=== PATIENT | female | born 1995 | race Two or more races ===

== ENCOUNTER 2021-08-01 12:01 | Outpatient (CLI) | payer OTHER ==
[2021-08-02 03:27] LABS: SARS-CoV-2 PCR by NAA Not Detected (NotDetected)
== END 2021-08-01 12:02 | disposition home or self-care (01) ==
LOC: CSHLAB 12:01
PROVIDERS: ATTEND Obstetrics & Gynecology
DX: Z20.822 Contact with and (suspected) exposure to COVID-19 (principal)
CPT/HCPCS: U0003; U0005

== ENCOUNTER 2021-08-02 15:54 | Inpatient (IN) | payer OTHER ==
[2021-08-02] MEDS: Lactated Ringer's 1,000 ML IV SCH ×2 (16:52→20:07)
[2021-08-02 16:59] VITALS: BMI 41.5
[2021-08-02] MEDS ORDERED: NS w/ Oxytocin 30 units 500 ML IV SCH ×2 (17:15)
[2021-08-02] MEDS ORDERED: Acetaminophen 500 MG TAB PO PRN (17:15)
[2021-08-02] MEDS ORDERED: Ibuprofen 800 MG TAB PO PRN (17:15)
[2021-08-02] MEDS ORDERED: HYDROcodone/Acetaminophen 5/325 mg Tablet PO PRN (17:15)
[2021-08-02] MEDS ORDERED: Promethazine HCl 25 MG/ML VIAL IM PRN ×2 (17:15→20:10)
[2021-08-02] MEDS ORDERED: Ondansetron PF 4 MG/2 ML Vial IVP PRN ×2 (17:15→20:10)
[2021-08-02] MEDS ORDERED: Carboprost 250 MCG/ML AMP IM PRN (17:15)
[2021-08-02] MEDS ORDERED: Diphenoxylate HCl/Atropine Tablet PO PRN ×2 (17:15)
[2021-08-02] MEDS ORDERED: Butorphanol Tartrate 1 MG/ML VIAL SLOW IVP PRN (17:15)
[2021-08-02] MEDS ORDERED: Docusate 100 MG CAP PO PRN (17:15)
[2021-08-02] MEDS ORDERED: Lidocaine 1% (PF) 30 ML VIAL SC PRN (17:15)
[2021-08-02] MEDS ORDERED: Misoprostol 200 MCG TAB PR PRN (17:15)
[2021-08-02] MEDS ORDERED: Zolpidem Tartrate 5 MG TAB PO PRN (17:15)
[2021-08-02] MEDS ORDERED: hydrALAZINE 20 MG/ML VIAL SLOW IVP PRN (17:15)
[2021-08-02 17:43] LABS: Hemoglobin 11.4 g/dL (12.0-15.5); Mean Corpuscular Hemoglobin 26.1 pg (27.0-33.0); Mean Corpuscular Volume 81.7 fl (81.6-98.3); Mean Platelet Volume 10.7 fl (7.4-10.4); Platelet Count 283 10x3/uL (150-450); RBC Distribution Width 14.6 % (11.5-14.5); Red Blood Cell (RBC) Count 4.36 10x6/uL (3.90-5.03); White Blood Cell (WBC) Count 12.2 10x3/uL (3.5-10.5)
[2021-08-02 18:13] LABS: Hep B Surf Ag Non-Reactive S/CO (NonReactive)
[2021-08-02 18:18] LABS: HBSAg Index 0.15 S/CO (0-0.99)
[2021-08-02 18:48] LABS: Syphilis Antibody Nonreactive (Nonreactive); Syphilis Antibody Index 0.05 S/CO (<1.00 Non-Reactive)
[2021-08-02] MEDS ORDERED: Fentanyl 2 mcg/Bup 0.1% Cadd 100 ML ONE (19:28)
[2021-08-02] MEDS ORDERED: Naloxone HCl 0.4 mg/ml Vial IVP PRN ×2 (20:10)
[2021-08-02] MEDS ORDERED: Acetaminophen 325 MG TAB PO PRN (20:10)
[2021-08-02] MEDS ORDERED: diphenhydrAMINE 50 MG/ML VIAL IVP PRN (20:10)
[2021-08-02] MEDS ORDERED: ePHEDrine Sulfate 50 MG/10 ML VIAL SLOW IVP PRN (20:10)
[2021-08-02] MEDS ORDERED: Lactated Ringer's 500 ML IV PRN (20:10)
[2021-08-02] MEDS ORDERED: Hydrocerin (Eucerin) Cream 120 gm Jar TOP PRN (20:10)
[2021-08-02] MEDS ORDERED: Fentanyl 2 mcg/Bupivacaine 0.1% Cassette 100 ML EPIDURAL SCH (20:15)
[2021-08-02] MEDS ORDERED: Communication Order-Pharmacy FS SCH (20:15)
[2021-08-03] MEDS ORDERED: Misoprostol 200 MCG TAB VAG PRN (01:33)
[2021-08-03] MEDS ORDERED: Varicella virus, LIVE 0.5 ML VIAL SC ONE (01:33)
[2021-08-03] MEDS ORDERED: Boostrix 0.5 ML (Tdap) VIAL IM ONE (01:33)
[2021-08-03] MEDS ORDERED: Preparation H Ointment 28 GM TUBE PR PRN (01:33)
[2021-08-03] MEDS ORDERED: Ondansetron PF 4 MG/2 ML Vial IVP PRN (01:33)
[2021-08-03] MEDS ORDERED: Measles/Mumps/Rubella 10 MCG/0.5 ML VIAL SC ONE (01:33)
[2021-08-03] MEDS ORDERED: Lanolin Ointment 7 GM TUBE TOP PRN (01:33)
[2021-08-03] MEDS ORDERED: Milk Of Magnesia 30 ML UDCUP PO PRN (01:33)
[2021-08-03] MEDS ORDERED: diphenhydrAMINE 25 MG CAP PO PRN (01:33)
[2021-08-03] MEDS ORDERED: Bisacodyl 10 MG SUPP PR PRN (01:33)
[2021-08-03] MEDS ORDERED: HYDROcodone/Acetaminophen 5/325 mg Tablet PO PRN (01:33)
[2021-08-03] MEDS ORDERED: Promethazine HCl 25 MG/ML VIAL IM PRN (01:33)
[2021-08-03] MEDS ORDERED: Benzocaine-Menthol 82.5 ML CAN TOP PRN (01:33)
[2021-08-03] MEDS ORDERED: Zolpidem Tartrate 5 MG TAB PO PRN (01:33)
[2021-08-03] MEDS ORDERED: hydrALAZINE 20 MG/ML VIAL SLOW IVP PRN (01:33)
[2021-08-03] MEDS ORDERED: NS w/ Oxytocin 30 units 500 ML IV SCH (01:33)
[2021-08-03] MEDS: Ibuprofen 800 MG TAB PO SCH ×4 (02:38→21:31)
[2021-08-03 04:57] LABS: Hemoglobin 10.2 g/dL (12.0-15.5); Mean Corpuscular HGB CONC 33.3 g/dL (32.0-36.0); Mean Corpuscular Hemoglobin 26.7 pg (27.0-33.0); Mean Corpuscular Volume 80.1 fl (81.6-98.3); Mean Platelet Volume 10.7 fl (7.4-10.4); Platelet Count 244 10x3/uL (150-450); RBC Distribution Width 14.8 % (11.5-14.5); Red Blood Cell (RBC) Count 3.82 10x6/uL (3.90-5.03); White Blood Cell (WBC) Count 13.4 10x3/uL (3.5-10.5)
[2021-08-03] MEDS: Ferrous Sulfate 325 MG TAB PO SCH ×2 (07:18→15:01)
[2021-08-03] MEDS: Docusate 100 MG CAP PO SCH ×2 (08:30→20:04)
[2021-08-03] MEDS: Prenatal Vitamin 1 TAB PO SCH (08:30)
[2021-08-04] MEDS: Ibuprofen 800 MG TAB PO SCH ×2 (05:54→15:42)
[2021-08-04] MEDS: Ferrous Sulfate 325 MG TAB PO SCH ×2 (07:21→07:22)
[2021-08-04 07:53] VITALS: BP 113/66; TEMP 98.1
[2021-08-04] MEDS: Docusate 100 MG CAP PO SCH (08:32)
[2021-08-04] MEDS: Prenatal Vitamin 1 TAB PO SCH (08:32)
== END 2021-08-04 17:20 | disposition home or self-care (01) | DRG 807 ==
LOC: CSHLD 15:54 → CSHPP 08-03 01:27
PROVIDERS: ADMIT Obstetrics & Gynecology; ATTEND Obstetrics & Gynecology
PROC: 10E0XZZ Delivery of Products of Conception, External Approach (ICD-10-PCS; principal; 2021-08-02)
PROC: 10907ZC Drainage of Amniotic Fluid, Therapeutic from Products of Conception, Via Natural or Artificial Opening (ICD-10-PCS; 2021-08-02)
DX: O13.4 Gestational [pregnancy-induced] hypertension without significant proteinuria, complicating childbirth (principal); Z37.0 Single live birth; Z3A.39 39 weeks gestation of pregnancy
CPT/HCPCS: 36415; 51702; 85027; 86762; 86780; 86850; 86900; 86901; 87340; J2590; J7120